=== PATIENT | male | born 1995 | race Caucasian/White ===

== ENCOUNTER 2017-01-23 16:22 | Emergency (ER) | payer OTHER ==
[~2017-01-23] VITALS: Ht 193 cm; Wt 64.9 kg
[2017-01-23 16:54] VITALS: BP 140/73
--- NOTE | 2017-01-23 17:05 | NUR ---
Patient ambulated to OF to be evaluated as fast track by ELIJAH Potter. RN evaluating patient.
--- NOTE | 2017-01-23 17:07 | NUR ---
PATIENT PRESENTS TO ED WITH C/O RASH TO BILATERAL FEET PRURITUS, IRRITATION---ALSO TO SPORADIC AREAS OF EXTREMITIES X 2 WKS TO ARMS;DENIES N/V/D; SKIN IS PINK/WARM/DRY; AAOX4 WITH EVEN AND STEADY GAIT; LUNGS CLEAR BL; HR EVEN AND REGULAR; PT DENIES ANY FEVER, CP, SOB, OR COUGH AT THIS TIME; PATIENT STATES PAIN OF 0/10 AT THIS TIME; PATIENT POSITIONED FOR COMFORT; HOB ELEVATED; BEDRAILS UP X2; BED DOWN. PLEATER WILL BE NOTIFIED.
--- NOTE | 2017-01-23 17:20 | NUR ---
HOT ROOM ATTENDANT AT BEDSIDE.
--- NOTE | 2017-01-23 17:42 | NUR ---
PT SITTING ON CHAIR;NO ACUTE DISTRESS NOTED;WILL CONTINUE TO MONITOR PT.
[2017-01-23 18:09] VITALS: BP 140/73
== END 2017-01-23 18:09 | disposition home or self-care (01) ==
LOC: MED 16:22
DX: B35.3 Tinea pedis (principal)
CPT/HCPCS: 99283

== ENCOUNTER 2017-06-19 20:43 | Emergency (ER) | payer OTHER ==
[~2017-06-19] VITALS: Ht 190.5 cm; Wt 66.7 kg
[2017-06-19 21:00] VITALS: BP 125/72
--- NOTE | 2017-06-19 23:09 | NUR ---
PT AMBULATED TO CHAIR.
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
--- NOTE | 2017-06-20 00:42 | NUR ---
KAYLEY GRECO AT BEDSIDE EVALUATING PT.
[2017-06-20 01:05] VITALS: BP 116/57
--- NOTE | 2017-06-20 01:05 | NUR ---
Patient discharged with v/s stable. Written and verbal after care instructions given and explained. Patient alert, oriented and verbalized understanding of instructions. Ambulatory with steady gait. All questions addressed prior to discharge. ID band removed. Patient advised to follow up with PMD. Rx of MOTRIN AND PREDNISONE given. Patient educated on indication of medication including possible reaction and side effects. Opportunity to ask questions provided and answered.
== END 2017-06-20 00:55 | disposition home or self-care (01) ==
LOC: MED 20:43
DX: J02.9 Acute pharyngitis, unspecified (principal); R05 Cough; F17.200 Nicotine dependence, unspecified, uncomplicated
CPT/HCPCS: 99284

== ENCOUNTER 2019-02-02 04:21 | Emergency (ER) | payer MEDICAID, OTHER ==
[~2019-02-02] VITALS: Ht 193 cm; Wt 68.0 kg
[2019-02-02 04:30] VITALS: BP 120/80
--- NOTE | 2019-02-02 04:30 | NUR ---
to bed # 09 ambulatory
--- NOTE | 2019-02-02 04:35 | NUR ---
EKG PERFORMED AT BEDSIDE
--- NOTE | 2019-02-02 04:40 | NUR ---
23 Y/O M PRESENTED TO THE ED WITH C/O HEART PALPITATIONS X1 WEEK. AAOX4. PER PT "THIS STARTED AFTER I DROPPED ACID A FEW WEEKS AGO. IT FEELS LIKE A PANIC ATTACK." C/O DIFFICULTY BREATHING AND CHANGE IN APPETITE. INTERMINTENT NAUSEA, DENIES V/D. O2 SATURATION MAINTAINED AT 100%. BILATERAL LUNG MERINO CLEAR THROUGHOUT. BEDRAIL X1 UP. BED IN LOWEST POSTION. WILL CONTINUE TO MONITOR.
[2019-02-02 05:09] LABS: BASOPHILS % (AUTO) 0.8 % (0.0-2.0); EOSINOPHILS # (AUTO) 0.1 K/uL (0-0.4); EOSINOPHILS % (AUTO) 2.4 % (0.0-4.0); HEMATOCRIT 44.7 % (36-52); HEMOGLOBIN 15.4 g/dL (12.0-18.0); LYMPHOCYTES # (AUTO) 1.5 K/uL (2.0-11.5); LYMPHOCYTES % (AUTO) 28.7 % (20.5-51.1); MEAN CORPUSCULAR HEMOGLOBIN 31 pg (27-31); MEAN CORPUSCULAR HGB CONC 34 g/dL (33-37); MEAN CORPUSCULAR VOLUME 88.9 fL (80-94); MONOCYTES # (AUTO) 0.4 K/uL (0.8-1.0); MONOCYTES % (AUTO) 7.9 % (1.7-9.3); NEUTROPHILS # (AUTO) 3.2 K/uL (1.8-7.7); NEUTROPHILS % (AUTO) 60.2 % (42.2-75.2); PLATELET COUNT (AUTO) 366 K/uL (140-450); RED BLOOD CELL COUNT(AUTO) 5.03 MIL/uL (4.20-6.10); WHITE BLOOD COUNT (AUTO) 5.4 K/uL (4.8-10.8)
[2019-02-02 05:20] LABS: ANION GAP 11.8 (8-16); CREATININE 1.1 mg/dL (0.7-1.3); POTASSIUM 3.8 mmol/L (3.5-5.1)
[2019-02-02 05:26] LABS: ALBUMIN 4.3 g/dL (3.4-5.0); TOTAL BILIRUBIN 1.5 mg/dL (0.0-1.0)
--- NOTE | 2019-02-02 06:02 | NUR ---
Patient discharged with v/s stable. Written and verbal after care instructions given and explained. Patient verbalized understanding. Ambulatory with steady gait. All questions addressed prior to discharge. Advised to follow up with PMD.
== END 2019-02-02 06:02 | disposition home or self-care (01) ==
LOC: MED 04:21
DX: R11.0 Nausea (principal); R00.2 Palpitations; I49.8 Other specified cardiac arrhythmias; F17.200 Nicotine dependence, unspecified, uncomplicated
CPT/HCPCS: 36415; 74018; 80053; 85025; 93005; 99284; Q0092

== ENCOUNTER 2020-05-14 08:54 | Emergency (ER) | payer MEDICAID, OTHER ==
[~2020-05-14] VITALS: Ht 193 cm; Wt 77.1 kg
[2020-05-14 08:59] VITALS: BP 135/93
--- NOTE | 2020-05-14 09:06 | NUR ---
Patient ambulated to bed 4. RN evaluating patient at bedside.
--- NOTE | 2020-05-14 09:12 | NUR ---
Dr. Cabral is evaluating the patient at bedside.
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
--- NOTE | 2020-05-14 09:51 | NUR ---
heat treat technician at bedside.
--- NOTE | 2020-05-14 09:52 | NUR ---
XRAY IS AT BEDSIDE.
--- NOTE | 2020-05-14 10:35 | NUR ---
APPLIED AIR CAST TO PATIENTS LEFT ANKLE, PMSC'S ASSESSED AND WNL
[2020-05-14 10:44] VITALS: BP 119/71
== END 2020-05-14 10:44 | disposition home or self-care (01) ==
LOC: MED 08:54
DX: S93.402A Sprain of unspecified ligament of left ankle, initial encounter (principal); V29.60XA Unspecified motorcycle rider injured in collision with unspecified motor vehicles in traffic accident, initial encounter; Y93.89 Activity, other specified; Y92.89 Other specified places as the place of occurrence of the external cause; Y99.8 Other external cause status
CPT/HCPCS: 29515; 73610; 99283

== ENCOUNTER 2021-11-13 08:35 | Emergency (ER) | payer BC, OTHER ==
[~2021-11-13] VITALS: Ht 193 cm; Wt 68.7 kg
[2021-11-13 08:42] VITALS: BP 145/86
--- NOTE | 2021-11-13 08:43 | NUR ---
PATIENT AMB TO BED 6
[2021-11-13] MEDS ORDERED: AMOX1TAB8 PO (09:16)
[2021-11-13] MEDS ORDERED: BACITRACIN OINT 500 UNITS/GM PKT TP ONE (09:20)
--- NOTE | 2021-11-13 09:27 | NUR ---
PERFORMED WOUND CARE BY IRRIGATING WITH NORMAL SALINE AND BETADINE. DRESSED WOUND WITH A BANDAID. CMS CHECKED BEFORE/AFTER DRESSING. ERMD NOTIFED.
--- NOTE | 2021-11-13 09:53 | NUR ---
DOG BITE REPORT SENT TO [facility] VIA FAX
--- NOTE | 2021-11-13 10:08 | NUR ---
Patient discharged with v/s stable. Written and verbal after care instructions FOR LACERATION CARE AND TETANUS TOXOID ADSORBED INJECTION given and explained. Patient alert, oriented and verbalized understanding of instructions. Ambulatory with steady gait. All questions addressed prior to discharge. ID band removed. Patient advised to follow up with PMD. Rx of AMOXICILLIN/POTASSIUM CLAV given. Opportunity to ask questions provided and answered.
--- NOTE | 2021-11-13 10:09 | NUR ---
Chart checked and completed. The patient's care was reviewed and supervised by Paulette Torres RN.
== END 2021-11-13 10:08 | disposition home or self-care (01) ==
LOC: MED 08:35
DX: S61.250A Open bite of right index finger without damage to nail, initial encounter (principal); F17.210 Nicotine dependence, cigarettes, uncomplicated; F12.90 Cannabis use, unspecified, uncomplicated; Z79.899 Other long term (current) drug therapy; W54.0XXA Bitten by dog, initial encounter; Y93.89 Activity, other specified; Y92.89 Other specified places as the place of occurrence of the external cause; Y99.8 Other external cause status
CPT/HCPCS: 90471; 90715; 99283